=== PATIENT | male | born 1980 | race Two or more races ===

== ENCOUNTER 2023-03-22 14:08 | Emergency (ER) | payer MEDICAID, OTHER ==
[~2023-03-22] VITALS: Ht 170.2 cm; Wt 97.6 kg
[2023-03-22 15:06] VITALS: BP 145/82; PULSE 83; RESP 18; TEMP 99; O2SAT 95
[2023-03-22] MEDS ORDERED: KETOROLAC TROMETH 30 MG/ML 1ML VIAL IV ONE (15:15)
[2023-03-22] MEDS ORDERED: CEFTRIAXONE SODIUM 2 GM in D5W 5% 100 ML IV ONE (15:15)
[2023-03-22] MEDS ORDERED: cefTRIAXone 1GM/50ML D5W 50 ML IV ONE ×2 (15:45)
[2023-03-22] MEDS ORDERED: IBUP-1456 PO (16:11)
[2023-03-22] MEDS ORDERED: CLIN300C70 PO (16:11)
== END 2023-03-22 16:34 | disposition home or self-care (01) ==
LOC: ER 14:08
DX: K04.7 Periapical abscess without sinus (principal); H66.93 Otitis media, unspecified, bilateral; R23.8 Other skin changes; Z79.1 Long term (current) use of non-steroidal anti-inflammatories (NSAID); Z79.2 Long term (current) use of antibiotics; Z88.0 Allergy status to penicillin
CPT/HCPCS: 96365; 96375; 99284; J0696; J1885; J7060